=== PATIENT | female | born 1985 | race African-American/Black ===

== ENCOUNTER 2023-01-07 17:58 | Emergency (ER) | payer OTHER ==
[2023-01-07 18:25] VITALS: BP 116/66; PULSE 85; RESP 18; TEMP 99; BMI 28.3
== END 2023-01-07 20:29 | disposition home or self-care (01) ==
LOC: FER 17:58
DX: N93.8 Other specified abnormal uterine and vaginal bleeding (principal)
CPT/HCPCS: 84703; 99283-25